=== PATIENT | female | born 1980 | race African-American/Black ===

== ENCOUNTER 2018-11-25 23:30 | Emergency (ER) | payer BC ==
[2018-11-25 23:43] VITALS: BP 117/67; PULSE 82; TEMP 97.9; BMI 26.5
[2018-11-26] MEDS ORDERED: SODIUM CHLORIDE 0.9% 500 ML INFUS.BAG IV ONE (01:10)
--- NOTE | 2018-11-26 01:10 | PDOC ---
History of Present Illness - General Chief Complaint: Palpitations Stated Complaint: PALPITATIONS Time Seen by Provider: 11/26/18 00:51 - History of Present Illness Initial Comments: 11/26/18 01:05 The patient is a 38 year old female at 31 weeks gestation who presents to the ED from L&D c/o palpitations. Patient felt palpitations twice during her second trimester and once last week. Patient came to the hospital tonight because the palpitations were particularly severe. Patient states she has been vomiting throughout her and she often feels palpitations and diaphoretic after vomiting. Palpitations sometimes associated with L sided chest tightness that is non-radiating Denies any family cardiac history. 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 Past History - Past Medical History Allergies/Adverse Reactions: Allergies Allergy/AdvReac Type Severity Reaction Status Date / Time ciprofloxacin Allergy Severe Swelling Verified 11/25/18 23:43 Home Medications: Ambulatory Orders Vitamins (Sjr) - 1 tab PO DAILY 11/26/18 COPD: No - Suicide/Smoking/Psychosocial Hx Smoking History: Never smoked Have you smoked in the past 12 months: No Information on smoking cessation initiated: No Hx Alcohol Use: No Drug/Substance Use Hx: No Review of Systems - Review of Systems Constitutional: No: Chills, Fever HEENTM: No: Recent change in vision Respiratory: Yes: Shortness of Breath. No: Wheezing Cardiac (ROS): Yes: Chest Pain, Palpitations. No: Lightheadedness ABD/GI: No: Constipated, Diarrhea, Nausea, Vomiting : No: Burning, Dysuria *Physical Exam - Vital Signs Last Vital Signs Temp Pulse Resp BP Pulse Ox 97.9 F 82 17 117/67 100 11/25/18 23:41 11/25/18 23:41 11/25/18 23:41 11/25/18 23:41 11/25/18 23:41 - Physical Exam General Appearance: Yes: Nourished, Appropriately Dressed HEENT: positive: Normal Voice, Hearing Grossly Normal Neck: positive: Trachea midline, Supple Respiratory/Chest: positive: Lungs Clear, Normal Breath Sounds. negative: Labored Respiration, Rapid RR, Crackles, Wheezing Cardiovascular: positive: S1, S2, Systolic Murmur. negative: JVD Vascular Pulses: Dorsalis-Pedis (R): 2+, Doralis-Pedis (L): 2+ Gastrointestinal/Abdominal: positive: Normal Bowel Sounds, Soft Extremity: positive: Normal Capillary Refill, Normal Inspection Integumentary: positive: Normal Color, Dry, Warm Neurologic: positive: operations research analyst II-XII NML intact, Fully Oriented, Alert ED Treatment Course - LABORATORY CBC & Chemistry Diagram: 11/26/18 01:40 11/26/18 01:40 Medical Decision Making - Medical Decision Making 11/26/18 01:11 38 year old female at 31 weeks gestation with heart palpitations. Cleared by L& D. EKG shows TWI in anterior leads V2,V3. Repeat VS 92/57 @ bedside, other VS unremarkable. Will obtain Troponin x2 given ECG findings - no previous ECG in EMR, TWI may represent acute finding. IV hydration. Reassess. 11/26/18 01:59 Patient signed out to Dr. Amin (Resident) and Dr. Ortiz (Attending) Hb 9.8 - ? dilutional anemia of CMP, Troponin pending *DC/Admit/Observation/Transfer Diagnosis at time of Disposition: Palpitations - Discharge Dispostion Disposition: HOME Condition at time of disposition: Stable - Referrals Referrals: ON STAFF,NOT [Primary Care Provider] - - Patient Instructions Printed Discharge Instructions: DI for Palpitations Additional Instructions: 1) Please follow-up with your primary care doctor in the next 2-3 days. Please call tomorrow to schedule a follow up appointment. If you cannot follow up with your doctor within 1 week please return to the Emergency Department for any urgent issues. 2) Your laboratory results were normal here in the ER. You are to follow up with your [employer] specialist within 1 week as well to discuss your ER visit and further management of your symptoms. 3) If you have any worsening of symptoms or any other concerns please return to the ER immediately. Return if worsening symptoms including fevers, headache, vomiting, visual or hearing disturbances, abdominal pain, chest pain, shortness of breath, syncope, dehydration, inability to take things by mouth/vomiting, altered mental status, or worsening concerning symptoms. 4) Please continue taking your home medications as directed. Side effects may include upset stomach, abdominal pain, vomiting, or diarrhea. - Post Discharge Activity
--- NOTE | 2018-11-26 01:49 | PDOC ---
Documentation entered by Tigist Stroud SCRIBE, acting as scribe for Elenita Ojeda MD. Elenita Ojeda MD: This documentation has been prepared by the Maximus garza Adrianna, SCRIBE, under my direction and personally reviewed by me in its entirety. I confirm that the documentation accurately reflects all work, treatment, procedures, and medical decision making performed by me. Attending Attestation - Resident Resident Name: Keshia Patino - ED Attending Attestation I have performed the following: I have examined & evaluated the patient, The case was reviewed & discussed with the resident, I agree w/resident's findings & plan, Exceptions are as noted - HPI HPI: The patient is a 38 year old female (, currently at 31 weeks gestation), with no significant PMH, who presents to the emergency department today complaining of palpitations. She has been in L&D for heart monitoring, when she told them she was experiencing palpitations that were more severe than normal. She endorses associated localized left-sided chest tightness. Patient was discharged from L&D and advised to come downstairs. She endorses nausea and vomit throughout her , with associated intermittent diaphoresis. Patient endorses similar palpitations twice during her second trimester, and once last week. The patient denies shortness of breath, headache and dizziness. Denies fever, chills, diarrhea and constipation. Denies dysuria, frequency, urgency and hematuria. Allergies: Ciprofloxacin Past surgical history: None reported Social history: No reported PCP: Not on staff 11/26/18 01:47 - Physicial Exam PE: 11/26/18 01:28 slender 38 yo female in no acute distress head ncat eyes juan manuel eomi neck supple lungs cta b/l abd protuberant, nontender no flank pain extremities no edema.,no deformities skin warm and dry neuro axox3,ambulatory psych appropriate - Medical Decision Making 11/26/18 01:30 38 yo female who is 31 weeks and has experienced palpitations and left sided chest pain that is non radiating that is like a "tightness" -ekg shows nsr @ 82 bpm, occassional pvcs, also there are inverted t waves in V1-V3 she does not have shortness of breath plan cardiac monitoring,2 sets of troponins, re assess
--- NOTE | 2018-11-26 01:55 | PDOC ---
*Physical Exam - Vital Signs Last Vital Signs Temp Pulse Resp BP Pulse Ox 97.9 F 82 17 117/67 100 11/25/18 23:41 11/25/18 23:41 11/25/18 23:41 11/25/18 23:41 11/25/18 23:41 - Physical Exam Comments: 11/26/18 02:15 General Appearance: Nourished. No Apparent Distress HEENT: EOMI, ZION. No Pharyngeal Erythema, Tonsillar Exudate, Tonsillar Erythema Neck: No Cervical Lymphadenopathy Respiratory/Chest: Lungs Clear, Normal Breath Sounds. No Crackles, Rales, Rhonchi, Wheezing Cardiovascular: Regular Rhythm, Regular Rate. No Murmur, Gallops, Rubs Gastrointestinal/Abdominal: Normal Bowel Sounds, Soft. Gravid abdomen. No Guarding, Rebound, Tenderness Musculoskeletal: No CVA Tenderness Extremity: Normal Capillary Refill Integumentary: Normal Color, Dry, Warm Neurologic: Fully Oriented, Alert, Normal Mood/Affect, Normal Response, ED Treatment Course - LABORATORY CBC & Chemistry Diagram: 11/26/18 01:40 11/26/18 01:40 Progress Note - Progress Note Progress Note: The patient is a 38 year old 31 week female who presents for evaluation of palpitations. The patient has been evaluated by OB and cleared. She is pending lab work up and troponin x2 due to t wave inversions on ekg. Medical Decision Making - Medical Decision Making 11/26/18 05:45 CBC, cmp, troponin x2 are unremarkable. The patient was reassessed and reports improvement in their symptoms. We are comfortable discharging the patient home in stable condition. Patient and family made aware of impression and plan, return precautions discussed including but not limited to worsening pain or symptoms, fevers, or signs of infection, chest pain, respiratory distress, inability to tolerate oral intake, dehydration, syncope, or neurologic changes. The patient is to follow up with PMD and specialist as recommended within 1 week , follow up information provided and the patient will call for an appointment. The patient is to take medications as instructed for duration of time and continue with supportive care, avoid triggers and precipitants. Patient is safe for outpatient follow-up. *DC/Admit/Observation/Transfer Diagnosis at time of Disposition: Palpitations - Discharge Dispostion Disposition: HOME Condition at time of disposition: Stable - Referrals Referrals: ON STAFF,NOT [Primary Care Provider] - - Patient Instructions Printed Discharge Instructions: DI for Palpitations Additional Instructions: 1) Please follow-up with your primary care doctor in the next 2-3 days. Please call tomorrow to schedule a follow up appointment. If you cannot follow up with your doctor within 1 week please return to the Emergency Department for any urgent issues. 2) Your laboratory results were normal here in the ER. You are to follow up with your [facility] [employer] specialist within 1 week as well to discuss your ER visit and further management of your symptoms. 3) If you have any worsening of symptoms or any other concerns please return to the ER immediately. Return if worsening symptoms including fevers, headache, vomiting, visual or hearing disturbances, abdominal pain, chest pain, shortness of breath, syncope, dehydration, inability to take things by mouth/vomiting, altered mental status, or worsening concerning symptoms. 4) Please continue taking your home medications as directed. Side effects may include upset stomach, abdominal pain, vomiting, or diarrhea. - Post Discharge Activity
[2018-11-26 01:57] LABS: BASO % 0.4 % (0-2.0); EOS % 0.4 % (0-4.5); HEMATOCRIT 30.1 % (32.4-45.2); HEMOGLOBIN 9.8 GM/dL (10.7-15.3); LYMPH % 18.6 % (8-40); MCH 27.5 pg (25.7-33.7); MCHC 32.4 g/dl (32.0-36.0); MEAN PLT VOLUME 7.5 fl (7.5-11.1); MONO % 7.8 % (3.8-10.2); NEUT % 72.8 % (42.8-82.8); RBC 3.54 M/mm3 (3.60-5.2); RDW 16.1 % (11.6-15.6); WHITE BLOOD COUNT 9.1 K/mm3 (4.0-10.0)
[2018-11-26 02:19] LABS: PLATELET COUNT 262 K/MM3 (134-434)
[2018-11-26 02:23] LABS: ALBUMIN 2.6 g/dl (3.4-5.0); ALK PHOS 87 U/L (45-117); ANION GAP 7 MMOL/L (8-16); BILIRUBIN,TOTAL 0.2 mg/dL (0.2-1); CALCIUM 8.9 mg/dL (8.5-10.1); CHLORIDE 110 mmol/L (98-107); CO2 22 mmol/L (21-32); CREATININE 0.6 mg/dL (0.55-1.3); GLUCOSE,RANDOM 113 mg/dL (74-106); SGOT/AST 24 U/L (15-37); SGPT/ALT 18 U/L (13-61); SODIUM 139 mmol/L (136-145); TOT PROT 6.2 g/dl (6.4-8.2)
[2018-11-26 02:34] LABS: BLOOD UREA NITROGEN 2.9 mg/dL (7-18)
[2018-11-26 02:50] LABS: ANISOCYTOSIS 1+; MACROCYTOSIS 0; PLATELET ESTIMATE NORMAL
--- NOTE | 2018-11-26 12:42 | EKG ---
Test Reason : Blood Pressure : / mmHG Vent. Rate : 082 BPM Atrial Rate : 082 BPM P-R Int : 150 ms QRS Dur : 080 ms QT Int : 358 ms P-R-T Axes : 064 051 048 degrees QTc Int : 418 ms SINUS RHYTHM WITH OCCASIONAL PREMATURE VENTRICULAR COMPLEXES POSSIBLE LEFT ATRIAL ENLARGEMENT ABNORMAL ECG NO PREVIOUS ECGS AVAILABLE Confirmed by Jose Michel MD ([id number]) on 11/26/2018 12:42:43 PM Referred By: Confirmed By:Jose Michel MD
== END 2018-11-26 06:28 | disposition home or self-care (01) ==
LOC: JER 23:30
DX: O26.893 Other specified pregnancy related conditions, third trimester (principal); R00.2 Palpitations; Z3A.31 31 weeks gestation of pregnancy
CPT/HCPCS: 36415; 59025; 80053; 82550; 84484; 85025; 93005; 93010; 99282-25